=== PATIENT | male | born 1980 | race Caucasian/White ===

== ENCOUNTER 2017-02-13 08:55 | Inpatient (IN) | payer SELFPAY ==
--- NOTE | 2017-02-13 09:09 | UCPHY ---
H & P Time Seen by Provider: 02/13/17 09:09 Patient Type: New HPI/ROS: CHIEF COMPLAINT: Left-sided abdominal pain HISTORY OF PRESENT ILLNESS: Patient has had left-sided abdominal pain since Monday morning. He describes it on his upper left abdomen and flank radiating to his groin and then around to the right. It is sharp and not affected by eating drinking or motion or position. He was seen at [facility] on Monday but left the emergency department. Over the past 2 days the pain has continued. Radiates as above. Moderate in nature. Associated with some shortness of breath and wheezing. Denies fever to me. REVIEW OF SYSTEMS: Eye: no change in vision ENT: no sore throat Cardiac: no chest pain or syncope Pulmonary: HPI, chronic smoker's cough unchanged Abdomen: HPI Musculoskeletal: no back pain Skin: no rash Neuro: no headache Constitutional: no fever : no urinary symptoms A comprehensive 10 point review of systems is otherwise negative aside from elements mentioned in the history of present illness. PAST MEDICAL HISTORY: Left arm fracture, patient states he takes Seroquel for "anxiety." Notes from [facility] reference bipolar disorder. Family history: Negative for DVT or renal colic Social history: Smoker, states to me that his last alcohol was 3 months ago General Appearance: Alert and conversant, cooperative. Eyes: Icteric. ENT, Mouth: Dry mucous membranes. Respiratory: Normal respiratory effort, breath sounds equal, lungs are clear to auscultation. Cardiovascular: Regular rate and rhythm. Gastrointestinal: Mild diffuse abdominal tenderness without rebound or guarding. Neurological: Alert and oriented x3. Normally conversant. Face symmetric, normal movement and sensation in all extremities. Skin: Jaundice. Musculoskeletal: No peripheral edema and no joint swelling. Psychiatric: Not agitated. Emergency Department course/MDM: Patient had imaging at [facility] including apparently CT or MRI, and ultrasound. Plan for labs including CBC and chemistry panel, liver function tests lipase and protime. Plan to obtain records from [facility]. 1012: Results discussed, including diagnosis of pancreatitis and plan for transfer to [facility]. Patient is agreeable to admission. Chest x-ray reviewed with Dr. Scott from radiology who has concerns about a lateral posterior infiltrate seen, query pulmonary infarct. He recommends CTA which would be performed now. 1116: Still awaiting results from [facility]. CT discussed with Dr. Mcneal and negative for PE or pulmonary infarct. Admission discussed again with the patient, discussed with Delphine Joel and the patient will be direct admitted footminongs to Dr. [place]. Feeling less pain after 0.5 mg IV Dilaudid. IV normal saline 2 L given for clinical dehydration with dry mucous membranes and tachycardia, and decreased oral intake by history. 1153: Results from [facility] are able to be reviewed at this time. The patient had an MRCP on 02/10/2017 which showed pancreatitis but normal biliary ducts. Ultrasound at that time showed hepatic steatosis and gallbladder sludge. Hard copy sent with the patient to [facility]. Constitutional: Initial Vital Signs Temperature (C) 37.3 C 02/13/17 09:09 Heart Rate 134 H 02/13/17 09:09 Respiratory Rate 20 02/13/17 09:09 Blood Pressure 123/81 H 02/13/17 09:09 O2 Sat (%) 94 02/13/17 09:09 O2 Delivery Mode Room Air Allergies/Adverse Reactions: No Known Allergies Allergy (Verified 02/13/17 09:14) Home Medications: Medication Instructions Recorded Metoprolol Tartrate 02/13/17 Omeprazole 02/13/17 Paxil 02/13/17 Seroquel 02/13/17 Medical Decision Making - Diagnostics EKG Interpretation: 12-lead EKG interpreted by me; official reading is in trace master. My interpretation is sinus tachycardia with borderline prolonged QT. Imaging Results: Imaging Impressions Chest X-Ray 02/13/17 09:16 Impression: 1. Left lower lobe posterior pleural pneumonia, infarct, or loculated pleural effusion. 2. Consider CT chest with contrast imaging. Findings and recommendations discussed with Emergency Department physician, Luis Scott at 9:59 hours, February 13, 2017. Final report concurs with initial preliminary interpretation. Chest x-ray personally interpreted by myself. Differential Diagnosis: Differential considered including but not limited to hepatitis, pancreatitis, gallstone disease, duodenal perforation. Consult/Admit Bed Type: Wisam Birmingham 1018 - Data Points Laboratory Results: Laboratory Results 02/13/17 09:20 02/13/17 09:20 02/13/17 02/13/17 02/13/17 09:20 09:20 09:20 WBC 7.87 10^3/uL 10^3/uL (3.80-9.50) RBC 4.39 10^6/uL L 10^6/uL (4.40-6.38) Hgb 14.0 g/dL g/dL (13.7-17.5) Hct 39.9 % L % (40.0-51.0) MCV 90.9 fL fL (81.5-99.8) MCH 31.9 pg pg (27.9-34.1) MCHC 35.1 g/dL g/dL (32.4-36.7) RDW 14.3 % % (11.5-15.2) Plt Count 103 10^3/uL L 10^3/uL (150-400) MPV 10.5 fL fL (8.7-11.7) Neut % (Auto) 67.9 % % (39.3-74.2) Lymph % (Auto) 17.4 % % (15.0-45.0) [place] % (Auto) 12.7 % % (4.5-13.0) Eos % (Auto) 0.5 % L % (0.6-7.6) Baso % (Auto) 0.4 % % (0.3-1.7) Nucleat RBC Rel Count 0.0 % % (0.0-0.2) Absolute Neuts (auto) 5.34 10^3/uL 10^3/uL (1.70-6.50) Absolute Lymphs (auto) 1.37 10^3/uL 10^3/uL (1.00-3.00) Absolute Monos (auto) 1.00 10^3/uL H 10^3/uL (0.30-0.80) Absolute Eos (auto) 0.04 10^3/uL 10^3/uL (0.03-0.40) Absolute Basos (auto) 0.03 10^3/uL 10^3/uL (0.02-0.10) Absolute Nucleated RBC 0.00 10^3/uL 10^3/uL (0-0.01) Immature Gran % 1.1 % % (0.0-1.1) Immature Gran # 0.09 10^3/uL 10^3/uL (0.00-0.10) PT 12.8 SEC SEC (12.0-15.0) INR 0.99 (0.83-1.16) Sodium 132 mEq/L L mEq/L (134-144) Potassium 3.2 mEq/L L mEq/L (3.5-5.2) Chloride 96 mEq/L L mEq/L (97-110) Carbon Dioxide 25 mEq/l mEq/l (22-31) Anion Gap 11 mEq/L mEq/L (8-16) BUN 8 mg/dL mg/dL (7-23) Creatinine 0.7 mg/dL mg/dL (0.7-1.3) Estimated GFR > 60 Glucose 101 mg/dL H mg/dL (70-100) Calcium 8.4 mg/dL L mg/dL (8.5-10.4) Total Bilirubin 7.3 mg/dL H mg/dL (0.1-1.4) Conjugated Bilirubin 5.8 mg/dL H mg/dL (0.0-0.5) Unconjugated Bilirubin 1.5 mg/dL H mg/dL (0.0-1.1) AST 121 IU/L H IU/L (17-59) ALT 118 IU/L H IU/L (21-72) Alkaline Phosphatase 108 IU/L IU/L (38-126) Total Protein 6.3 g/dL g/dL (6.3-8.2) Albumin 2.9 g/dL L g/dL (3.5-5.0) Lipase 1033.0 IU/L H IU/L (23-300) Medications Given: Discontinued Medications Hydromorphone HCl (Dilaudid) 0.5 mg IVP EDNOW ONE Stop: 02/13/17 10:22 Last Admin: 02/13/17 10:30 Dose: 0.5 mg Sodium Chloride (Ns) 1,000 mls @ 0 mls/hr IV ONCE ONE PRN Reason: Wide Open Stop: 02/13/17 11:48 Last Admin: 02/13/17 11:30 Dose: 1,000 mls Departure - Departure Disposition: [facility] Acute Clinical Impression: Dehydration Pancreatitis Qualifiers: Chronicity: acute Pancreatitis type: unspecified pancreatitis type Acute pancreatitis complication: unspecified Qualified Code(s): K85.90 - Acute pancreatitis without necrosis or infection, unspecified Condition: Good - PQRS PQRS Measurement: n/a
[2017-02-13 09:25] LABS: % IMMATURE GRANULYOCYTES 1.1 % (0.0-1.1); ABSOLUTE IMMATURE GRANULOCYTES 0.09 10^3/uL (0.00-0.10); ADD DIFF? NO; ADD MORPH? NO; ADD SCAN? NO; ATYPICAL LYMPHOCYTE FLAG 0 (0-99); FRAGMENT RBC FLAG 0 (0-99); HEMATOCRIT 39.9 % (40.0-51.0); LEFT SHIFT FLG 90 (0-99); LIPEMIA HEMOLYSIS FLAG 90 (0-99); MEAN CELL HEMOGLOBIN 31.9 pg (27.9-34.1); MEAN CELL HEMOGLOBIN CONCENTR. 35.1 g/dL (32.4-36.7); MEAN CELL VOLUME 90.9 fL (81.5-99.8); MEAN PLATELET VOLUME 10.5 fL (8.7-11.7); PLATELET CLUMPS FLAG 0 (0-99); PLATELET COUNT 103 10^3/uL (150-400); RED BLOOD CELL COUNT 4.39 10^6/uL (4.40-6.38); RED CELL DISTRIBUTION WIDTH 14.3 % (11.5-15.2)
[2017-02-13 09:36] LABS: INR 0.99 (0.83-1.16); PROTIME(PATIENT) 12.8 SEC (12.0-15.0)
[2017-02-13 09:41] LABS: ALANINE AMINOTRANSFERASE 118 IU/L (21-72); ALBUMIN 2.9 g/dL (3.5-5.0); ALKALINE PHOSPHATASE 108 IU/L (38-126); ANION GAP 11 mEq/L (8-16); ASPARTATE AMINOTRANSFERASE 121 IU/L (17-59); BILIRUBIN,TOTAL 7.3 mg/dL (0.1-1.4); BILIRUBIN-CONJUGATED 5.8 mg/dL (0.0-0.5); BILIRUBIN-UNCONJUGATED 1.5 mg/dL (0.0-1.1); CALCIUM 8.4 mg/dL (8.5-10.4); CARBON DIOXIDE 25 mEq/l (22-31); CHLORIDE 96 mEq/L (97-110); CREATININE 0.7 mg/dL (0.7-1.3); GLOMERULAR FILTRATION RATE > 60; GLUCOSE 101 mg/dL (70-100); POTASSIUM 3.2 mEq/L (3.5-5.2); SODIUM 132 mEq/L (134-144); TOTAL PROTEIN 6.3 g/dL (6.3-8.2)
[2017-02-13] MEDS ORDERED: HYDROmorphONE/DILAUDID 1 MG/ML SYR IVP ONE (10:21)
--- NOTE | 2017-02-13 10:23 | CPEKG ---
Heart Rate: 115 RR Interval: 522 P-R Interval: 144 QRSD Interval: 98 QT Interval: 344 QTC Interval: 476 P [place]: 56 QRS [place]: 14 T Wave [place]: 19 EKG Severity - BORDERLINE ECG - EKG Impression: SINUS TACHYCARDIA EKG Impression: BORDERLINE PROLONGED QT INTERVAL Electronically Signed By: Luis Scott 13-Feb-2017 10:27:37
[2017-02-13] MEDS ORDERED: IOPAMIDOL (ISOVUE 370) 100 ML BTL IV ONE (10:45)
[2017-02-13] MEDS ORDERED: NS 1,000 ML IV ONE (11:47)
[2017-02-13] MEDS ORDERED: ONDANSETRON DISINTEGRATING 4 MG TAB PO PRN (14:51)
[2017-02-13] MEDS ORDERED: ACETAMINOPHEN 325 MG TAB PO PRN (14:51)
[2017-02-13] MEDS ORDERED: ONDANSETRON 4 MG/2 ML VIAL IVP PRN (14:51)
[2017-02-13] MEDS ORDERED: NALOXONE HCL 0.4 MG/ML INJ IVP PRN (14:54)
[2017-02-13] MEDS: HYDROmorphONE/DILAUDID 6 MG/30 ML PCA IV PRN ×2 (15:21→15:30)
[2017-02-13] MEDS: D5W 1/2 NS W/ 20 KCl/L 1,000 ML IV SCH (15:30)
[2017-02-13] MEDS ORDERED: QUEtiapine FUMARATE 50 MG TAB PO PRN (15:32)
[2017-02-13] MEDS: POTASSIUM Cl (KCl) 100 ML IV SCH ×4 (15:43→20:57)
--- NOTE | 2017-02-13 16:02 | GHP ---
[f rep st] HISTORY AND PHYSICAL DATE OF ADMISSION: 02/13/2017 CHIEF COMPLAINT: Abdominal pain. HISTORY OF PRESENT ILLNESS: This is a 36-year-old male with no significant past medical history. H e states that 3 days ago he developed sudden onset of sharp epigastric pain. This is also radiating to the left and right side currently. It is associated with some nausea and vomiting. He has had fevers and chills as well. He went to [facility] early Monday morning and was there for about 12 hours. From what it sounds like, they were considering ERCP at that time, but then de cided against it. Regardless, he felt like he was not treated well, and the patient went back home. He is still having persistent abdominal pain since then. He apparently did have an MRCP at that [facility] that showed pancreatitis but did not show any biliary ductal dilatation. He had an ultrasound t hat showed sludge. He had similar episode to this 3 months ago that resolved spontaneously. REVIEW OF SYSTEMS: A 10-point review of systems was obtained and was negative. PAST MEDICAL HISTORY: 1. Hypertension. 2. Anxiety/possible bipolar. SOCIAL HISTORY: Quit alcohol 3 months ago. FAMILY HISTORY: Reviewed and noncontributory. PHYSICAL EXAM: VITAL SIGNS: Afebrile, blood pressure is 142/92, heart rate 112, oxygen saturation 92% on room air. GENERAL: The patient is well developed, no apparent distress. HEENT: Nonicteric sclerae. Extraocular movements intact. Moist mucous membranes. NECK: Supple. No thyromegaly. LUNGS: Good effort. Clear to auscultation bilaterally. CARDIOVASCULAR: Regular rate and rhythm. No murmurs or gallops. ABDOMEN: Slightly distended, soft. Moderate epigastric and right and left upper quadrant tenderness. No rebound or guarding. EXTREMITIES: No clubbing, cyanosis, or edema. SKIN: Without rash, dry, intact. NEURO: Alert and oriented x3. Moving all 4 extremities equall y. PSYCH: Normal mood and affect. LABS: White blood cell count is normal. Sodium 132, potassium 3.2. Total bilirubin is 7.3 with co njugated at 5.8, AST 121, ALT 118. Lipase is 1000. CT scan of the chest shows no pulmonary embolis m and some atelectasis in the lung bases as well as splenomegaly and pancreatitis. ASSESSMENT: This is a 36-year-old male presenting with acute pancreatitis and elevated liver functi on tests. PLAN: 1. Acute pancreatitis: I suspect this is gallbladder related whether it is sludge or a passed gall stone. We will keep him n.p.o. and give IV fluids. 2. Elevated liver function tests: Suspicious for either retained sludge or stone. I did discuss t he case with Gastroenterology who will see the patient. We will get an ultrasound to see if there i s any biliary dilatation and review MRCP from [facility]. Because of his fevers and chills and obstru ctive pattern, we will give a few doses of Invanz in case there might be some ongoing cholangitis. 3. Hypertension: Continue medications. 4. Bipolar. 5. Admission: Patient will be admitted under full admission status. Case discussed with Gastroent erology. Old records reviewed and summarized in the HPI. /[id number]/MODL
[2017-02-13] MEDS: ERTAPENEM 1 GM in NS 100 ML IV SCH (16:42)
--- NOTE | 2017-02-13 20:18 | GCON ---
[f rep st] CONSULTATION DATE OF CONSULTATION: 02/13/2017 CHIEF COMPLAINT: Abdominal pain. HISTORY OF PRESENT ILLNESS: I am asked to see this patient in consultation by Dr. Chiu for the chief complaint of abdominal pain. This patient is a pleasant 36-year-old who has had episodes of pancreatitis. The first was approximately 3 months ago, and then on Monday he had recurrent pain, although somewhat atypical; he feels it in the left upper quadrant radiating down to the left lower quadrant and across his abdomen but also has more classic bandlike pain across his epigastrium. He presented to [facility] for evaluation. At that time, he had elevated LFTs with transaminases with AST at 900, ALT of 450, alkaline phosphatase of 160 and elevated lipase. They did an MRCP that was of good quality and showed no duct abnormalities, no dilated common duct, no stones. It was thought that it was probably pancreatitis from gallstones. However, the patient elected to leave the hospital without admission, had continued pain through the weekend until it spiked again today and he presented for further evaluation. He has a history of alcohol use but states he stopped drinking 3 months ago. There is no family history for pancreatitis. He has been eating fatty foods over the weekend and he thinks this makes his pain feel worse. He is not aware of ever having elevated LFTs in the past. Never had history of hepatitis. ALLERGIES: No known drug allergies. MEDICATIONS ON ADMISSION: Tylenol, metoprolol, Paxil. He has been given a dose of ertapenem and Dilaudid for pain. PAST MEDICAL HISTORY: Noted for hypertension, anxiety. He has a history of tobacco and alcohol use. SOCIAL HISTORY: As above. History of alcohol use but quit 3 months ago. He is a smoker. FAMILY HISTORY: Negative for pancreatic problems. REVIEW OF SYSTEMS: I have performed a complete review of systems which is negative except for the pertinent positives and negatives as noted above in the HPI. PHYSICAL EXAMINATION: VITAL SIGNS: He is afebrile at 36.8. BP 141/92, pulse is 110. CONSTITUTIONAL: The patient is alert and oriented x3. HEENT: Eyes show scleral icterus. No oral lesions. CARDIOVASCULAR: Slightly tachycardic but no murmur. CHEST: Clear to auscultation bilaterally. ABDOMEN: Soft. Bowel sounds present. Tender over the epigastric area and distended. NEUROLOGIC: Grossly nonfocal. SKIN: No obvious rashes. No bruising. LABORATORY DATA: BUN and creatinine are 8 and 0.7. Sodium low at 132, potassium low at 3.2. Alkaline phosphatase is 108 today, AST 121, ALT 118, total bilirubin was 7.3. Prothrombin time 12.5. White count is 7 with a hematocrit of 29.9. Lipase is elevated at 1033. Ultrasound repeated today shows sludge in the gallbladder but no cholelithiasis or cholecystitis. There is no biliary duct dilation. There is low-level steatohepatitis and splenomegaly. ASSESSMENT: Patient with pancreatitis. This seems to be at least his second episode. Although he does have a history of alcohol use, he has had no recent drinking and his pancreatitis would seem more consistent with being from gallbladder disease. He does have some sludge. However, I do not see any evidence to suggest a choledocholithiasis and he has no dilated ducts. MRCP showed no abnormalities at [facility] and his alkaline phosphatase is not elevated. It is possible he may have had a stone that has passed. The patient may also have underlying liver disease such as nonalcoholic steatohepatitis or potentially from alcohol use. Also consider viral hepatitis versus acute biliary issue. Overall, it does appear that his lab tests have improved significantly since he presented Monday at [facility]. I suspect the patient may benefit from consideration for cholecystectomy, although I do not see a need for ERCP at this time. PLAN: I recommend conservative measures for pancreatitis with n.p.o. and IV fluids, pain medications as needed. I will check viral hepatitis B and C serology. Recommend check an IgG4 for autoimmune pancreatitis. I would recommend surgical consultation to give consideration for cholecystectomy once his pancreatitis has improved. If concerns change for possible common duct stone, IOC can be done at the time of surgery or we could repeat MRCP. Will follow. Thank you for this consultation. /[id number]/MODL MTDD
[2017-02-13] MEDS: PANTOPRAZOLE SODIUM 40 MG TAB PO SCH (21:01)
[2017-02-13] MEDS: PARoxetine HCL 20 MG TAB PO SCH (21:01)
[2017-02-13] MEDS: QUEtiapine FUMARATE 200 MG TAB PO SCH (21:01)
[2017-02-14 05:04] LABS: % IMMATURE GRANULYOCYTES 2.5 % (0.0-1.1); ABSOLUTE IMMATURE GRANULOCYTES 0.17 10^3/uL (0.00-0.10); ABSOLUTE NRBC COUNT 0.04 10^3/uL (0-0.01); ADD DIFF? NO; ADD MORPH? NO; ADD SCAN? YES; ATYPICAL LYMPHOCYTE FLAG 40 (0-99); FRAGMENT RBC FLAG 0 (0-99); HEMATOCRIT 36.4 % (40.0-51.0); HEMOGLOBIN 12.1 g/dL (13.7-17.5); LIPEMIA HEMOLYSIS FLAG 80 (0-99); MEAN CELL HEMOGLOBIN 31.3 pg (27.9-34.1); MEAN CELL HEMOGLOBIN CONCENTR. 33.2 g/dL (32.4-36.7); MEAN CELL VOLUME 94.1 fL (81.5-99.8); MEAN PLATELET VOLUME 10.6 fL (8.7-11.7); NRBC-AUTO% 0.6 % (0.0-0.2); PLATELET CLUMPS FLAG 10 (0-99); PLATELET COUNT 91 10^3/uL (150-400); RED BLOOD CELL COUNT 3.87 10^6/uL (4.40-6.38); RED CELL DISTRIBUTION WIDTH 14.6 % (11.5-15.2)
[2017-02-14 05:18] LABS: LEFT SHIFT FLG 110 (0-99)
[2017-02-14 05:31] LABS: ANION GAP 7 mEq/L (8-16); CARBON DIOXIDE 26 mEq/l (22-31); CHLORIDE 102 mEq/L (97-110); CREATININE 0.7 mg/dL (0.7-1.3); GLOMERULAR FILTRATION RATE > 60; GLUCOSE 115 mg/dL (70-100); POTASSIUM 3.3 mEq/L (3.5-5.2); SODIUM 135 mEq/L (134-144)
[2017-02-14 05:41] LABS: SCAN NEGATIVE
[2017-02-14] MEDS: D5W 1/2 NS W/ 20 KCl/L 1,000 ML IV SCH (08:37)
[2017-02-14] MEDS: METOPROLOL SUCCINATE XR 50 MG TAB PO SCH (08:47)
[2017-02-14] MEDS: ERTAPENEM 1 GM in NS 100 ML IV SCH (08:47)
[2017-02-14] MEDS: HYDROmorphONE/DILAUDID 6 MG/30 ML PCA IV PRN (10:40)
[2017-02-14] MEDS ORDERED: PNEUMOCOCCAL 0.5ML VACCINE VIAL IM ONE ×2 (11:20→14:30)
[2017-02-14] MEDS ORDERED: HYDROmorphONE/DILAUDID 2 MG/ML INJ IVP PRN (12:38)
--- NOTE | 2017-02-14 12:43 | HOSPPROG ---
Hospitalist Progress Note Assessment/Plan: 36 y/o male new to my care today with #acute pancreatitis likely due to gallbladder sludge without clinical signs of acute cholecystitis/cholangitis -will monitor off abx -cont ivf -advance diet to clears -dc cleaners and treat with oxyir and iv dilaudid for breakthrough pain\ -IgG4 panel pending -Gi consult was reviewed and appreciated #alcohol use without signs of withdrawal #hypertension #bipolar Subjective: improving abd pain, but continues to have generalized ache. some appetite. minimal fllatus Objective: Vital Signs Temp Pulse Resp BP Pulse Ox 36.8 C 110 H 18 130/88 H 95 02/14/17 11:48 02/14/17 11:48 02/14/17 11:48 02/14/17 11:48 02/14/17 11:48 Laboratory Results 02/14/17 04:40 02/14/17 04:40 02/13/17 02/14/17 02/15/17 05:59 05:59 05:59 Intake Total 1500 Balance 1500 PT 12.8 SEC (12.0-15.0) 02/13/17 09:20 INR 0.99 (0.83-1.16) 02/13/17 09:20 abd u/s reviewed - Physical Exam Constitutional: no apparent distress, appears nourished, not in pain Cardiovascular: regular rate and rhythym, no murmur, rub, or gallop Respiratory: no respiratory distress, no rales or rhonchi, clear to auscultation , reduced air movement (bilat bases) Gastrointestinal: distension, other (diminished bowel sounds), No dash's sign , No guarding, No rebound Genitourinary: no bladder fullness, no bladder tenderness, no renal bruits Skin: no rashes or abrasions, no fluctuance, no induration Musculoskeletal: full muscle strength, no muscle tenderness, normal joint ROM Neurologic: AAOx3, sensation intact bilaterally ICD10 Worksheet Patient Problems: Problems Problem Status Onset Pancreatitis Acute Dehydration Acute
--- NOTE | 2017-02-14 14:16 | SOAPPROG ---
SOAP Progress Note Assessment/Plan: Assessment: A/ Pancreatitis clinically better suspect from cause from ? GB possible passed stone, he does have h/o ETOH but none for last 3 weeks. Elevated LFT not c/w alcoholic hepatitis suspect from pancreatitis. No E/O CBD stone with neg MRCP. Plan: Agree with supportive care and trial of liquids today Await IgG4 and hep panel Rec surgical consultation to consider choley once pancreatitis improved. 02/14/17 14:11 Subjective: CC abd pain Still with pain but somewhat better. Able to tolerate some clear liquids Objective: Vital Signs Temp Pulse Resp BP Pulse Ox 36.8 C 110 H 18 130/88 H 95 02/14/17 11:48 02/14/17 11:48 02/14/17 11:48 02/14/17 11:48 02/14/17 11:48 Laboratory Results 02/14/17 04:40 02/14/17 04:40 02/13/17 02/14/17 02/15/17 05:59 05:59 05:59 Intake Total 1500 Balance 1500 PT 12.8 SEC (12.0-15.0) 02/13/17 09:20 INR 0.99 (0.83-1.16) 02/13/17 09:20 Physical Exam - Physical Exam General Appearance: no apparent distress Respiratory: lungs clear Cardiac/Chest: regular rate, rhythm Abdomen: other (still some pain epigatric area) ICD10 Worksheet Patient Problems: Problems Problem Status Onset Dehydration Acute Pancreatitis Acute
[2017-02-14] MEDS: oxyCODONE IR 5 MG TAB PO PRN (14:30)
[2017-02-14] MEDS: QUEtiapine FUMARATE 200 MG TAB PO SCH (20:13)
[2017-02-14] MEDS: PARoxetine HCL 20 MG TAB PO SCH (20:13)
[2017-02-14] MEDS: PANTOPRAZOLE SODIUM 40 MG TAB PO SCH (20:14)
[2017-02-15] MEDS: oxyCODONE IR 5 MG TAB PO PRN (05:14)
[2017-02-15 05:30] LABS: ABSOLUTE NRBC COUNT 0.04 10^3/uL (0-0.01); ADD DIFF? YES; ADD MORPH? NO; ADD SCAN? YES; ATYPICAL LYMPHOCYTE FLAG 0 (0-99); FRAGMENT RBC FLAG 0 (0-99); HEMATOCRIT 34.6 % (40.0-51.0); HEMOGLOBIN 11.5 g/dL (13.7-17.5); LIPEMIA HEMOLYSIS FLAG 80 (0-99); MEAN CELL HEMOGLOBIN 31.5 pg (27.9-34.1); MEAN CELL HEMOGLOBIN CONCENTR. 33.2 g/dL (32.4-36.7); MEAN CELL VOLUME 94.8 fL (81.5-99.8); MEAN PLATELET VOLUME 11.1 fL (8.7-11.7); NRBC-AUTO% 0.5 % (0.0-0.2); PLATELET CLUMPS FLAG 0 (0-99); PLATELET COUNT 128 10^3/uL (150-400); RED BLOOD CELL COUNT 3.65 10^6/uL (4.40-6.38); RED CELL DISTRIBUTION WIDTH 14.2 % (11.5-15.2)
[2017-02-15 05:34] LABS: ALANINE AMINOTRANSFERASE 65 IU/L (21-72); ALBUMIN 2.6 g/dL (3.5-5.0); ALKALINE PHOSPHATASE 84 IU/L (38-126); ANION GAP 10 mEq/L (8-16); ASPARTATE AMINOTRANSFERASE 49 IU/L (17-59); BILIRUBIN,TOTAL 2.5 mg/dL (0.1-1.4); CALCIUM 8.1 mg/dL (8.5-10.4); CARBON DIOXIDE 26 mEq/l (22-31); CHLORIDE 101 mEq/L (97-110); CREATININE 0.7 mg/dL (0.7-1.3); GLOMERULAR FILTRATION RATE > 60; GLUCOSE 90 mg/dL (70-100); POTASSIUM 3.4 mEq/L (3.5-5.2); SODIUM 137 mEq/L (134-144); TOTAL PROTEIN 5.4 g/dL (6.3-8.2)
[2017-02-15 05:54] LABS: BILIRUBIN-CONJUGATED 1.5 mg/dL (0.0-0.5)
[2017-02-15 06:04] LABS: LEFT SHIFT FLG 200 (0-99)
[2017-02-15 06:52] LABS: MACROCYTES 1+; PLATELET ESTIMATE DECREASED (ADEQ); POLYCHROMASIA 1+
[2017-02-15 06:53] LABS: LARGE PLATELETS PRESENT
[2017-02-15 08:41] VITALS: RESP 16
[2017-02-15] MEDS: METOPROLOL SUCCINATE XR 50 MG TAB PO SCH (09:17)
[2017-02-15 12:03] VITALS: BP 114/73; PULSE 88; TEMP 97.8; O2SAT 95
[2017-02-15 14:02] LABS: HEPATITIS Bs Ab QUANT <5.0 mIU/mL
--- NOTE | 2017-02-15 14:08 | GDS ---
[f rep st] DISCHARGE SUMMARY DISCHARGE DIAGNOSES: 1. Acute pancreatitis likely due to gallbladder sludge versus alcohol-related. 2. History of alcohol use. 3. Hypertension. 4. Bipolar disorder. CONSULTANTS: [facility]. HOSPITAL COURSE: Acute pancreatitis: The patient was admitted to the hospital for treatment of acute pancreatitis. A CT angio of the chest was done on initial presentation, that showed no evidence for PE. It did show small pleural effusion, and some evidence for pancreatitis. Abdominal ultrasound done was negative for gallstones, but he was found to have gallbladder sludge with no cholelithiasis, cholecystitis or bile duct dilation. The patient was treated supportively with IV fluids and initially with Dilaudid [employer] WORK JOB TITLES which was discontinued on the day prior to discharge. On the day prior to discharge, he was also started on a liquid diet. On day of discharge, the patient states his pain is improved and he is now tolerating a light diet. I discussed the case with Dr. Pinon from GI who thought it was reasonable for the patient to be discharged home with outpatient followup with Dr. Chapa of General Surgery. PHYSICAL EXAM: VITAL SIGNS: On day of discharge, blood pressure 114/73, pulse of 88, respiratory rate 16, O2 saturation 95% on room air. Temperature afebrile. GENERAL: No acute distress. ABDOMEN: Soft, mildly distended. There is no guarding or rebound tenderness. Negative Cr sign. EXTREMITIES : No clubbing or cyanosis. DIAGNOSTICS ON THIS HOSPITAL STAY: Abdominal ultrasound on 02/13/2017, refer to report. CT angio of the chest on 02/13/2017, refer to report. DISCHARGE MEDICATIONS: Please refer to discharge medication reconciliation in [facility] for full details. Below is a preliminary list. New medications on hospital discharge: Oxycodone 5-10 mg p.o. q.4 hours p.r.n. pain, prescription for #20 was given, Zofran 4 mg p.o. q.6 hours p.r.n. nausea, vomiting, prescription for #5 was given. All other home medications were continued at his usual home dosages. DISCHARGE INSTRUCTIONS: The patient will be discharged home where he should follow up with his primary care provider in the next week for routine hospital followup. He was also given information for Dr. Chapa to see in consultation as an outpatient to evaluate for cholecystectomy. He will need for follow-up of his IgG4 panel that was ordered by Dr. Pinon to look for IgG4 related pancreatic disease. Copy requested to: Dr. Holley /[id number]/MODL MTDD
== END 2017-02-15 14:12 | disposition home or self-care (01) | DRG 439 ==
LOC: CED 08:55 → CEDHOLD 10:23 → F3E 13:09
PROVIDERS: ADMIT Internal Medicine Pulmonary Disease; ATTEND Family Medicine
DX: K85.90 Acute pancreatitis without necrosis or infection, unspecified (principal); K82.8 Other specified diseases of gallbladder; I10 Essential (primary) hypertension; F10.99 Alcohol use, unspecified with unspecified alcohol-induced disorder; F17.210 Nicotine dependence, cigarettes, uncomplicated; F41.9 Anxiety disorder, unspecified
CPT/HCPCS: 71020-PO; 71275-PO; 80048-PO; 80076-PO; 83690-PO; 85025-PO; 85610-PO; 96361-PO; 96374-PO; G0009; G0463-PO; G0472; J1170; J1335; Q9967

== ENCOUNTER 2017-10-27 16:18 | Emergency (ER) | payer SELFPAY ==
[2017-10-27 16:25] VITALS: TEMP 97.3
--- NOTE | 2017-10-27 16:46 | CPEKG ---
Heart Rate: 73 RR Interval: 822 P-R Interval: 156 QRSD Interval: 96 QT Interval: 400 QTC Interval: 441 P [place]: 42 QRS [place]: 46 T Wave [place]: 24 EKG Severity - NORMAL ECG - EKG Impression: SINUS RHYTHM Electronically Signed By: Luis Scott 27-Oct-2017 16:55:06
--- NOTE | 2017-10-27 16:53 | EDPHY ---
H & P Time Seen by Provider: 10/27/17 16:40 HPI/ROS: CHIEF COMPLAINT: Irregular heartbeat HISTORY OF PRESENT ILLNESS: This 37-year-old man has been feeling irregular heartbeat over the last 2 months. He was incarcerated and was not on any of his medications. He got out last week and presents today for evaluation. He says he has occasional feeling like his heart is skipping a beat. It happens a couple of times every hour. It is not associated with chest pain shortness of breath or syncope. He says he has pretty severe anxiety and the sensation is making him anxious. Symptoms mild to moderate. REVIEW OF SYSTEMS: Eye: no change in vision ENT: no sore throat Cardiac: no chest pain or syncope Pulmonary: no cough or SOB Abdomen: no vomiting, diarrhea, abdominal pain Musculoskeletal: no back pain Skin: no rash Neuro: no headache Constitutional: no fever : no urinary symptoms A comprehensive 10 point review of systems is otherwise negative aside from elements mentioned in the history of present illness. PAST MEDICAL HISTORY: Includes anxiety and pancreatitis and left arm fracture Social history: Just released from prison last week, on beta-ania as well as paroxetine and Seroquel General Appearance: Alert and conversant, cooperative. Eyes: No scleral icterus. ENT, Mouth: Normal mucous membranes. Respiratory: Normal respiratory effort, breath sounds equal, lungs are clear to auscultation. Cardiovascular: Regular rate and rhythm. No murmurs. Gastrointestinal: Abdomen is soft and non tender. Neurological: Alert, face symmetric, normal movement and sensation in extremities. Skin: Warm and dry, no rashes. Musculoskeletal: No peripheral edema. Psychiatric: Not agitated. Mildly anxious. Emergency Department course/MDM: Patient was observed on the monitor in had unifocal PVC which correlated with his symptoms. Rhythm strip was printed discussed with the patient. I believe it is unlikely that he is having ventricular tachycardia or other malignant dysrhythmia, atrial fibrillation, sinus pauses. He is reassured and referred back to his primary care physician Smoking Status: Light smoker Constitutional: Initial Vital Signs Temperature (C) 36.3 C 10/27/17 16:21 Heart Rate 74 10/27/17 16:21 Respiratory Rate 16 10/27/17 16:21 Blood Pressure 137/94 H 10/27/17 16:21 O2 Sat (%) 97 10/27/17 16:21 O2 Delivery Mode Room Air Allergies/Adverse Reactions: No Known Allergies Allergy (Verified 02/13/17 09:14) Home Medications: Medication Instructions Recorded Metoprolol Succinate Xr [Toprol Xl 50 mg PO DAILY 02/13/17 50 mg (*)] Omeprazole [Prilosec 20 mg] 20 mg PO HS 02/13/17 PARoxetine HCL [Paxil 20mg (*)] 20 mg PO HS 02/13/17 QUEtiapine FUMARATE [Seroquel 200 200 mg PO HS 02/13/17 mg (*)] QUEtiapine FUMARATE [Seroquel 50 50 mg PO DAILY PRN 02/13/17 mg (*)] Ondansetron HCl [Zofran] 4 mg PO Q6 PRN #5 tablet 02/15/17 oxyCODONE IR [Oxycodone Ir (*)] 5 - 10 mg PO Q4 PRN #20 tab 02/15/17 Medical Decision Making - Diagnostics EKG Interpretation: 12-lead EKG interpreted by me; official reading is in trace master. My interpretation is normal sinus rhythm, normal intervals. Departure - Departure Disposition: Home, Routine, Self-Care Clinical Impression: PVC (premature ventricular contraction) Condition: Good Instructions: Premature Ventricular Contractions (ED) Referrals: Amandeep Holley MD [Primary Care Provider] - As per Instructions
[2017-10-27 16:58] VITALS: BP 127/96; PULSE 73; RESP 19; O2SAT 96
== END 2017-10-27 17:00 | disposition home or self-care (01) ==
DX: I49.3 Ventricular premature depolarization (principal); F17.200 Nicotine dependence, unspecified, uncomplicated

== ENCOUNTER 2018-01-27 07:15 | Emergency (ER) | payer MEDICAID, OTHER ==
[2018-01-27 07:24] VITALS: BP 128/89; PULSE 68; RESP 20; TEMP 98.8; O2SAT 97
--- NOTE | 2018-01-27 08:19 | EDPHY ---
H & P Time Seen by Provider: 01/27/18 07:31 HPI/ROS: This patient presents complaining of insomnia-no sleep last night and difficulty sleeping prior nights-only a few hours of sleep and received a night or 2. He also reports that it is difficult to hold still and relax. He reports compliance with his medications the currently include Seroquel 200 mg at bedtime and Paxil 40 mg a day. He also takes metoprolol 50 mg XL for hypertension and omeprazole for GERD. He reports increased social stressors currently-looking for job, and facing legal difficulties any thinks he has conditions are contributing to his feeling of increased anxiety. He has an appointment to see Dr. Holley, his primary care physician this coming Monday -6 days from now, but felt that he might benefit from an adjustment in his medication dosing or other change. ROS: Constitutional: No fevers or chills. No other complaints HEENT: No URI symptoms. Neuro: No headache. No numbness tingling or weakness. Psychiatric: He denies any homicidal or suicidal ideation Pulmonary: No dyspnea. Cardiovascular: No complaints GI: No complaints new line 10 point ROS is otherwise negative Social History: No drug use. No alcohol use (quit 6 Mo's ago). The patient walks for exercise. He reports the watches TV for relaxation. Smoking Status: Light smoker Physical Exam: General Appearance: Alert, no distress. Eyes: Pupils equal and round no pallor or injection. ENT, Mouth: Mucous membranes moist. Respiratory: There are no retractions, lungs are clear to auscultation. Cardiovascular: Regular rate and rhythm. Gastrointestinal: Abdomen is soft and nontender, no masses, bowel sounds normal. Neurological: GCS 15 with no focal deficits Skin: Warm and dry, no rashes. Extremities are symmetrical, full range of motion. Psychiatric: Patient's mood and affect here are normal. He has good insight into his illness maintains logical thought content. He has no pressured speech. He denies any suicidal ideation. No homicidal ideation. DIFFERENTIAL DIAGNOSIS: After history and physical exam differential diagnosis was considered for insomnia, anxiety, bipolar sx's without psychosis, Constitutional: Initial Vital Signs Temperature (C) 37.1 C 01/27/18 07:21 Heart Rate 68 01/27/18 07:21 Respiratory Rate 20 01/27/18 07:21 Blood Pressure 128/89 H 01/27/18 07:21 O2 Sat (%) 97 01/27/18 07:21 Allergies/Adverse Reactions: No Known Allergies Allergy (Verified 01/27/18 07:20) Home Medications: Medication Instructions Recorded Metoprolol Succinate 01/27/18 Omeprazole 01/27/18 PARoxetine HCL 01/27/18 QUEtiapine FUMARATE [Seroquel 50 50 mg PO DAILY #30 tab 01/27/18 mg (*)] Seroquel 01/27/18 Zaleplon [Sonata] 10 mg PO HS PRN #20 capsule 01/27/18 MDM/Departure - [facility] ED Course/Re-evaluation: Discussion: Patient is currently on a low Seroquel dose. When I spoke about his prior dosing had been on 50 mg a day in addition to 100 mg at night 9 months ago but forgot about that when the prescription ran out. I suggested that we go back to the 50 mg Seroquel in the morning to under night and continue upping the dose by 50 mg every day or 2 until he feels better control the symptoms. I also recommended sonata for sleep. Provided [facility] phone number encouraged him to have further psychiatric evaluation for his symptoms. Currently however no active psychotic symptoms. The patient does not have lizette currently clinically-maintains logical thought content, no pressured speech, good insight into his illness no suicidal or homicidal ideation. I think the safe for discharge with close follow up with his primary care physician and/or [facility] with medication adjustments as above. - Depart Disposition: Home, Routine, Self-Care Clinical Impression: Anxiety Insomnia Qualifiers: Insomnia type: primary Qualified Code(s): F51.01 - Primary insomnia Condition: Good Instructions: Insomnia (ED), Anxiety (ED) Additional Instructions: Diagnosis:. Insomnia 2. Anxiety Plan: Start daily exercise for 30-60 minutes or more such as hiking up mountain , jogging or other to get your heart rate up. Daily relaxation such as hot bath for 20-30 minutes Increase your Seroquel dose by taking 50 mg in the morning as well as the evening dose. If you still have ongoing symptoms despite this plan then add 50 mg to the evening dose as well. If after a few days he still ongoing symptoms then increase to 300 mg dose in the evening and 50 mg during the day. If after 2 days you still have symptoms, then increase to 100 mg in the morning and 300 mg at night. See Dr. Holley on Monday for a recheck. Consider follow up with psychiatrist as well as her primary care physician. Zaira sleepy medicine for insomnia if needed. Return for any significant worsening despite treatment plan Prescriptions: QUEtiapine FUMARATE [Seroquel 50 mg (*)] 50 mg PO DAILY #30 tab Zaleplon [Sonata] 10 mg PO HS PRN #20 capsule PRN Reason: insomnia Referrals: Amandeep Holley MD [Primary Care Provider] - As per Instructions [facility],. [Clinic] - As per Instructions
== END 2018-01-27 08:20 | disposition home or self-care (01) ==
LOC: CED 07:15
DX: F41.9 Anxiety disorder, unspecified (principal); F51.01 Primary insomnia; F17.200 Nicotine dependence, unspecified, uncomplicated